=== PATIENT | female | born 1960 | race Caucasian/White ===

== ENCOUNTER 2023-06-04 01:50 | Outpatient (CLI) | payer OTHER | END 2023-06-04 23:59 | disposition other institution (70) | LOC: EMS 01:50 | DX: R11.0 Nausea (principal); R10.30 Lower abdominal pain, unspecified; R19.7 Diarrhea, unspecified | CPT/HCPCS: A0425; A0429 ==

== ENCOUNTER 2023-06-04 02:10 | Emergency (ER) | payer OTHER ==
[2023-06-04 02:40] VITALS: O2SAT 100
[2023-06-04 02:41] LABS: BILIRUBIN,URINE NEGATIVE (NEGATIVE); GLUCOSE, URINE (UA) NEGATIVE (NEGATIVE); KETONES,URINE (UA) NEGATIVE (NEGATIVE); LEUKOCYTE ESTERASE, URINE TRACE (NEGATIVE); NITRITE,URINE NEGATIVE (NEGATIVE); OCCULT BLOOD,URINE NEGATIVE (NEGATIVE); PROTEIN,URINE 30 mg/dL (NEGATIVE); UROBILINOGEN,URINE 0.2 (NORMAL) E.U./dL (NORMAL)
[2023-06-04 02:43] LABS: CLARITY,URINE CLEAR (CLEAR)
[2023-06-04 02:49] LABS: BACTERIA,URINE Few /HPF (None Seen); RBC,URINE 0-5 /HPF (0-5); SQUAMOUS EPITHELIAL CELL,UR MANY Squamous (<= Few)
[2023-06-04 02:50] LABS: CASTS, URINE 6-10 Hyaline Casts /LPF
[2023-06-04 03:30] LABS: BASOPHILS # (AUTO) 0.1 10^3/uL (0.0-0.1); BASOPHILS % (AUTO) 0.8 %; EOSINOPHILS # (AUTO) 0.2 10^3/uL (0.0-0.7); EOSINOPHILS % (AUTO) 1.3 %; HCT - HEMATOCRIT 45.2 % (37.0-47.0); HGB - HEMOGLOBIN 14.6 g/dL (12.0-16.0); LYMPHOCYTES # (AUTO) 1.6 10^3/uL (1.5-3.5); MEAN CORPUSCULAR HEMOGLOBIN 29.6 pg (27.0-31.0); MEAN CORPUSCULAR HGB CONC 32.3 g/dL (32.0-36.0); MEAN CORPUSCULAR VOLUME 91.7 fL (81.0-99.0); MEAN PLATELET VOLUME 9.8 fL (7.9-10.8); MONOCYTES # (AUTO) 0.9 10^3/uL (0.0-1.0); MONOCYTES % (AUTO) 7.3 %; NEUTROPHILS # (AUTO) 9.2 10^3/uL (1.5-6.6); NEUTROPHILS % (AUTO) 77.3 %; PLT - PLATELET COUNT 230 10^3/uL (130-450); RED BLOOD COUNT 4.93 10^6/uL (4.20-5.40); RED CELL DISTRIBUTION WIDTH 12.2 % (12.0-15.0); WHITE BLOOD COUNT 11.9 x10^3/uL (4.8-10.8)
--- NOTE | 2023-06-04 03:47 | ED Physician Documentation ---
History of Present Illness - Stated complaint Stated Complaint: ABD PAIN, N/D - Chief complaint Chief Complaint: Abd Pain - History obtained from History obtained from: Patient, Family (partner) - Additonal information Additional information: 62yF with pmh hypothyroidism, p/w four episodes of watery diarrhea tonight and an episode of lightheadedness while lying in bed and on the toilet a/w nausea an d sweatiness. denies cp, soa, vomiting, blood in stool, urinary sx. felt normal yesterday. she is currently wearing a zio monitor for tachycardia with activity she first noticed with her new apple watch recently. denies cardiac history. Review of Systems Constitutional: denies: Fever, Chills Cardiac: denies: Chest pain / pressure, Palpitations Respiratory: denies: Dyspnea, Cough GI: reports: Abdominal Pain (cramping pain, now resolved), Nausea, Diarrhea. denies: Bloody / black stool : denies: Dysuria, Frequency PD PAST MEDICAL HISTORY - Past Medical History Past Medical History: Yes Endocrine/Autoimmune: HyPOthyroidism Musculoskeletal: Other Other Past Medical History: Osteopenia; Pt. takes THC gummies on regular basis but no abuse. - Past Surgical History Past Surgical History: Yes Ortho: Other - Present Medications Home Medications: Ambulatory Orders Medication Instructions Recorded Confirmed Estradiol 0.05 mg Patch [Climara 1 patch TOP 06/04/23 0.05 mg] Levothyroxine Sodium [Synthroid] 25 mcg PO DAILY 06/04/23 06/04/23 - Allergies Allergies/Adverse Reactions: Allergies Allergy/AdvReac Type Severity Reaction Status Date / Time No Known Drug Allergies Allergy Verified 06/04/23 02:35 - Social History Does the pt smoke?: No Smoking Status: Never smoker Does the pt drink ETOH?: Yes ETOH Use: Beer Does the pt have substance abuse?: No - Immunizations Immunizations are current?: Yes - POLST Patient has POLST: No PD ED PE NORMAL - Vitals Vital signs reviewed: Yes - General General: Alert and oriented X 3, No acute distress, Well developed/nourished - HEENT HEENT: Atraumatic, PERRL, EOMI - Neck Neck: Supple, no meningeal sign - Cardiac Cardiac: RRR - Respiratory Respiratory: No respiratory distress, Clear bilaterally - Abdomen Abdomen: Non tender, Non distended - Derm Derm: Normal color, Warm and dry - Extremities Extremities: No deformity - Neuro Neuro: Alert and oriented X 3, 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 Relevant findings are: Rate: Rate (enter#) (62) Rhythm: NSR Gray: Normal Intervals: Normal [place] QRS: Normal Ischemia: Normal ST segments, Other (minimal SAJI ant leads c/w CARMEN) - Labs Labs: Laboratory Tests 06/04/23 06/04/23 06/04/23 02:17 03:25 03:25 WBC 11.9 H RBC 4.93 Hgb 14.6 Hct 45.2 MCV 91.7 MCH 29.6 MCHC 32.3 RDW 12.2 Plt Count 230 MPV 9.8 Neut # (Auto) 9.2 H Lymph # (Auto) 1.6 [place] # (Auto) 0.9 Eos # (Auto) 0.2 Baso # (Auto) 0.1 Absolute Nucleated RBC 0.00 Nucleated RBC % 0.0 Sodium 139 Potassium 3.9 Chloride 105 Carbon Dioxide 26 Anion Gap 8.0 BUN 22 H Creatinine 0.7 Estimated GFR (MDRD) 84 L Glucose 103 Calcium 10.3 Total Bilirubin 0.3 AST 20 ALT 22 Alkaline Phosphatase 79 Total Protein 7.1 Albumin 4.3 Globulin 2.8 Albumin/Globulin Ratio 1.5 Lipase 22 Urine Color YELLOW Urine Clarity CLEAR Urine pH 6.0 Ur Specific [place] 1.025 Urine Protein 30 H Urine Glucose (UA) NEGATIVE Urine Ketones NEGATIVE Urine Occult Blood NEGATIVE Urine Nitrite NEGATIVE Urine Bilirubin NEGATIVE Urine Urobilinogen 0.2 (NORMAL) Ur Leukocyte Esterase TRACE H Urine RBC 0-5 Urine WBC 4-5 Ur Squamous Epith Cells MANY Squamous H Urine Bacteria Few Urine Casts 6-10 Hyaline Casts Ur Microscopic Review INDICATED Urine Culture Comments NOT INDICATED PD Medical Decision Making - ED course ED course: 62yF presents with presyncopal episode and 4 episodes of diarrhea tonight along with lower abdominal cramping. all her symptoms resolved in the ED . cbc, abdominal panel, ekg, u/a ordered. plan to f/u results. CBC, abdominal panel, ekg, ua looked good. plan to f/u pcp. symptomatic care discussed. return precautions given. Departure - Departure Disposition: Home, Self Care Clinical Impression: Nausea, Diarrhea, Abdominal pain, Light headedness Condition: Stable Instructions: ED Diarrhea Viral Comments: You were seen in the emergency department for medical evaluation. Your labwork, cardiac monitoring and ekg uncovered no emergent issues. You may be developing a stomach virus. Stay well hydrated and get lots of rest. Please follow-up with your primary care provider and return to the emergency department if you have any new or worsening symptoms or other concerns. Forms: PCP List
[2023-06-04 03:48] LABS: ALBUMIN 4.3 g/dL (3.2-5.5); ALBUMIN/GLOBULIN RATIO 1.5 (1.0-2.2); BILIRUBIN,TOTAL 0.3 mg/dL (0.2-1.0); CALCIUM 10.3 mg/dL (8.5-10.3); CREATININE 0.7 mg/dL (0.6-1.3); POTASSIUM 3.9 mmol/L (3.5-4.5); TOTAL PROTEIN 7.1 g/dL (6.4-8.9)
[2023-06-04 04:26] VITALS: BP 125/79
== END 2023-06-04 04:12 | disposition home or self-care (01) ==
LOC: ED 02:10
DX: R10.30 Lower abdominal pain, unspecified (principal); R19.7 Diarrhea, unspecified; R11.0 Nausea; R42 Dizziness and giddiness
CPT/HCPCS: 36415; 80053; 81001; 81003; 83690; 85025; 87086; 93005; 99283; 99284